=== PATIENT | female | born 1960 | race Two or more races ===

== ENCOUNTER 2020-07-06 20:23 | Inpatient (IN) | payer OTHER ==
[2020-07-06] MEDS ORDERED: ACETAMINOPHEN 325 MG TABLET PO STA (20:43)
[2020-07-06] MEDS ORDERED: SODIUM CHLORIDE 0.9% 1,000 ML IV STA (20:43)
[2020-07-06] MEDS ORDERED: ONDANSETRON 4 MG/2 ML VIAL IVP STA (20:44)
[2020-07-06 21:05] LABS: BASOPHILS % (AUTO) 0.2 %; HGB - HEMOGLOBIN 12.2 g/dL (12.0-16.0); LYMPHOCYTES # (AUTO) 0.9 10^3/uL (1.5-3.5); LYMPHOCYTES % (AUTO) 6.7 %; MEAN CORPUSCULAR HEMOGLOBIN 27.5 pg (27.0-31.0); MEAN CORPUSCULAR HGB CONC 34.1 g/dL (32.0-36.0); MEAN CORPUSCULAR VOLUME 80.6 fL (81.0-99.0); MEAN PLATELET VOLUME 9.6 fL (7.9-10.8); MONOCYTES # (AUTO) 0.4 10^3/uL (0.0-1.0); MONOCYTES % (AUTO) 3.4 %; NEUTROPHILS # (AUTO) 11.7 10^3/uL (1.5-6.6); NEUTROPHILS % (AUTO) 89.4 %; PLT - PLATELET COUNT 221 10^3/uL (130-450); RED BLOOD COUNT 4.44 10^6/uL (4.20-5.40); RED CELL DISTRIBUTION WIDTH 13.2 % (12.0-15.0); WHITE BLOOD COUNT 13.1 x10^3/uL (4.8-10.8)
[2020-07-06 21:17] LABS: ALBUMIN 4.3 g/dL (3.2-5.5); ALBUMIN/GLOBULIN RATIO 1.1 (1.0-2.2); CALCIUM 9.7 mg/dL (8.5-10.3); CREATININE 0.8 mg/dL (0.4-1.0); TOTAL PROTEIN 8.2 g/dL (6.7-8.2)
--- NOTE | 2020-07-06 21:19 | ED Physician Documentation ---
History of Present Illness - Stated complaint Stated Complaint: CHILLS,WEAK, TROUBLE URINATING - Chief complaint Chief Complaint: Fever - History obtained from History obtained from: Patient, Family - Additonal information Additional information: Patient comes emergency department chief complaint of dysuria for 1 week along with back pain, and fever and nausea x1 day. Patient has a history of diabetes and has had UTIs from time to time. She states that she feels as though she has urinary tract infection again. She denies any new shortness of breath. No chest pain or cough. No sore throat or other upper respiratory symptoms. Patient is mainly Tajik-speaking and daughter interprets. Patient also has a history of hypertension and hyperlipidemia, as well as anxiety. She takes Metformin for her diabetes. Her last measured blood sugar was 3 days ago, and was 150. No other complaints at this time. Review of Systems Ten Systems: 10 systems reviewed and negative Constitutional: reports: Fever Eyes: reports: Reviewed and negative Ears: reports: Reviewed and negative Nose: reports: Reviewed and negative Throat: reports: Reviewed and negative Cardiac: reports: Reviewed and negative Respiratory: reports: Reviewed and negative GI: reports: Abdominal Pain (suprapubic), Nausea, Vomiting (today only). denies: Diarrhea : reports: Dysuria, Frequency Skin: reports: Reviewed and negative Musculoskeletal: reports: Back pain, Reviewed and negative (R lower) Neurologic: reports: Reviewed and negative Psychiatric: reports: Reviewed and negative Endocrine: reports: Reviewed and negative Immunocompromised: reports: Reviewed and negative PD PAST MEDICAL HISTORY - Present Medications Home Medications: Ambulatory Orders Medication Instructions Recorded Confirmed Amlodipine Besylate [Norvasc] 10 mg PO DAILY 07/06/20 07/06/20 Duloxetine HCl [Cymbalta] 60 mg PO DAILY 07/06/20 07/06/20 Losartan Potassium [Cozaar] 100 mg PO DAILY 07/06/20 07/06/20 Metformin HCl [Glucophage] 1,000 mg PO BID 07/06/20 07/06/20 Pravastatin Sodium [Pravachol] 80 mg PO DAILY 07/06/20 07/06/20 busPIRone [Buspar] 5 mg PO DAILY 07/06/20 07/06/20 - Allergies Allergies/Adverse Reactions: Allergies Allergy/AdvReac Type Severity Reaction Status Date / Time No Known Drug Allergies Allergy Verified 07/06/20 20:32 PD ED PE NORMAL - Vitals Vital signs reviewed: Yes - General General: Alert and oriented X 3, No acute distress, Well developed/nourished - HEENT HEENT: Atraumatic, PERRL, EOMI, Moist mucous membranes - Neck Neck: Supple, no meningeal sign - Cardiac Cardiac: RRR, No murmur, Strong equal pulses - Respiratory Respiratory: No respiratory distress, Clear bilaterally - Abdomen Abdomen: Soft, Non tender, Non distended - Back Back: Other (R CVA tend) - Derm Derm: Normal color, Warm and dry, No rash - Extremities Extremities: No deformity, No edema, No calf tenderness / cord - Neuro Neuro: Alert and oriented X 3, Other (grossly intact) - Psych Psych: Normal mood, Normal affect Results - Vitals Vitals: Vital Signs - 24 hr 07/06/20 07/06/20 07/06/20 20:32 20:37 21:17 Temperature 39.2 C H 39.2 C H Heart Rate 100 98 96 Respiratory 16 18 16 Rate Blood Pressure 174/82 H 139/81 H 139/81 H O2 Saturation 98 98 100 07/06/20 07/06/20 07/06/20 21:48 22:18 22:30 Temperature 37.9 C 37.8 C 37.8 C Heart Rate 96 92 91 Respiratory 22 21 21 Rate Blood Pressure 119/89 H 134/62 H 135/62 H O2 Saturation 98 99 99 07/06/20 23:00 Temperature 37.7 C Heart Rate 95 Respiratory 21 Rate Blood Pressure 151/75 H O2 Saturation 97 Oxygen O2 Source Room air - Labs Labs: Microbiology 07/06/20 21:26 Blood Culture - Preliminary Blood - Left Arm Laboratory Tests 07/06/20 07/06/20 07/06/20 20:55 20:55 20:55 WBC 13.1 H RBC 4.44 Hgb 12.2 Hct 35.8 L MCV 80.6 L MCH 27.5 MCHC 34.1 RDW 13.2 Plt Count 221 MPV 9.6 Neut # (Auto) 11.7 H Lymph # (Auto) 0.9 L [place] # (Auto) 0.4 Eos # (Auto) 0.0 Baso # (Auto) 0.0 Absolute Nucleated RBC 0.00 Nucleated RBC % 0.0 Sodium 127 L Potassium 3.2 L Chloride 87 L Carbon Dioxide 23 Anion Gap 17.0 H BUN 9 Creatinine 0.8 Estimated GFR (MDRD) 73 L Glucose 268 H Lactic Acid 2.1 Calcium 9.7 Total Bilirubin 1.0 AST 25 ALT 25 Alkaline Phosphatase 70 Total Protein 8.2 Albumin 4.3 Globulin 3.9 Albumin/Globulin Ratio 1.1 Urine Color Urine Clarity Urine pH Ur Specific [place] Urine Protein Urine Glucose (UA) Urine Ketones Urine Occult Blood Urine Nitrite Urine Bilirubin Urine Urobilinogen Ur Leukocyte Esterase Urine RBC Urine WBC Ur Squamous Epith Cells Urine Bacteria Urine Culture Comments Nasal Adenovirus (PCR) Nasal B. parapertussis DNA (PCR) Nasal Coronavir 229E PCR Nasal Coronavir HKU1 PCR Nasal Coronavir NL63 PCR Nasal Coronavir OC43 PCR Nasal Enterovir/Rhinovir PCR Nasal Influenza B PCR Nasal Influenza A PCR Nasal Parainfluen 1 PCR Nasal Parainfluen 2 PCR Nasal Parainfluen 3 PCR Nasal Parainfluen 4 PCR Nasal RSV (PCR) Nasal B.pertussis DNA PCR Nasal C.pneumoniae (PCR) [place] Human Metapneumo PCR Nasal M.pneumoniae (PCR) Nasal SARS-CoV-2 (PCR) 07/06/20 07/06/20 21:36 22:23 WBC RBC Hgb Hct MCV MCH MCHC RDW Plt Count MPV Neut # (Auto) Lymph # (Auto) [place] # (Auto) Eos # (Auto) Baso # (Auto) Absolute Nucleated RBC Nucleated RBC % Sodium Potassium Chloride Carbon Dioxide Anion Gap BUN Creatinine Estimated GFR (MDRD) Glucose Lactic Acid Calcium Total Bilirubin AST ALT Alkaline Phosphatase Total Protein Albumin Globulin Albumin/Globulin Ratio Urine Color YELLOW Urine Clarity CLEAR Urine pH 7.5 Ur Specific [place] 1.015 Urine Protein 30 H Urine Glucose (UA) 100 H Urine Ketones NEGATIVE Urine Occult Blood NEGATIVE Urine Nitrite NEGATIVE Urine Bilirubin NEGATIVE Urine Urobilinogen 1 (NORMAL) Ur Leukocyte Esterase TRACE H Urine RBC 0-5 Urine WBC 6-10 H Ur Squamous Epith Cells FEW Squamous Urine Bacteria Rare Urine Culture Comments INDICATED Nasal Adenovirus (PCR) NOT DETECTED Nasal B. parapertussis DNA (PCR) NOT DETECTED Nasal Coronavir 229E PCR NOT DETECTED Nasal Coronavir HKU1 PCR NOT DETECTED Nasal Coronavir NL63 PCR NOT DETECTED Nasal Coronavir OC43 PCR NOT DETECTED Nasal Enterovir/Rhinovir PCR NOT DETECTED Nasal Influenza B PCR NOT DETECTED Nasal Influenza A PCR NOT DETECTED Nasal Parainfluen 1 PCR NOT DETECTED Nasal Parainfluen 2 PCR NOT DETECTED Nasal Parainfluen 3 PCR NOT DETECTED Nasal Parainfluen 4 PCR NOT DETECTED Nasal RSV (PCR) NOT DETECTED Nasal B.pertussis DNA PCR NOT DETECTED Nasal C.pneumoniae (PCR) NOT DETECTED [place] Human Metapneumo PCR NOT DETECTED Nasal M.pneumoniae (PCR) NOT DETECTED Nasal SARS-CoV-2 (PCR) NOT DETECTED - Rads (name of study) CT abd/pelvis Radiology: Prelim report reviewed, EMP read indepedently, See rad report (cystitis, otherwise NAD) PD MEDICAL DECISION MAKING - ED course Complexity details: reviewed old records, reviewed results, re-evaluated patient, considered differential, d/w patient ED course: The patient was treated with Tylenol for her fever and started on IV fluids. She was worked up with laboratory studies and urinalysis. The patient's white blood cell count was moderately elevated, and lactic acid level was high normal. Her urinalysis was mildly positive. Patient was significantly febrile, and I felt that she would benefit from observation in the hospital. I spoke with Dr. Blanco about this and at his request, a CT scan of the abdomen and pelvis was performed to evaluate for possible obstructive uropathy. This was found to be negative. At this point, the patient was accepted for admission. She had been given 2 g of Rocephin IV in the emergency department, and did not have deterioration of her vital signs during the course of her stay. Departure - Departure Disposition: [facility] DC/Xfer Clinical Impression: Fever, Diabetes UTI (urinary tract infection) Qualifiers: Urinary tract infection type: acute cystitis Hematuria presence: without hematuria Qualified Code(s): N30.00 - Acute cystitis without hematuria Condition: Serious Discharge Date/Time: 07/06/20 23:58
[2020-07-06 21:44] LABS: BILIRUBIN,URINE NEGATIVE (NEGATIVE); GLUCOSE, URINE (UA) 100 mg/dL (NEGATIVE); KETONES,URINE (UA) NEGATIVE (NEGATIVE); LEUKOCYTE ESTERASE, URINE TRACE (NEGATIVE); NITRITE,URINE NEGATIVE (NEGATIVE); OCCULT BLOOD,URINE NEGATIVE (NEGATIVE); PH,URINE 7.5 PH (5.0-7.5); PROTEIN,URINE 30 mg/dL (NEGATIVE); UROBILINOGEN,URINE 1 (NORMAL) E.U./dL (NORMAL)
[2020-07-06 21:48] LABS: CLARITY,URINE CLEAR (CLEAR)
[2020-07-06 21:53] LABS: RBC,URINE 0-5 /HPF (0-5); SQUAMOUS EPITHELIAL CELL,UR FEW Squamous (<= Few)
[2020-07-06 21:54] LABS: BACTERIA,URINE Rare /HPF (None Seen)
[2020-07-06] MEDS ORDERED: cefTRIAXone 2 GM in SODIUM CHLORIDE 0.9% MINIBAG 100 ML IV STA (22:05)
[2020-07-06] MEDS ORDERED: cefTRIAXone 2 GM VIAL ONE (22:24)
[2020-07-06] MEDS ORDERED: IOVERSOL 320 100 ML VIAL IVP ONE ×2 (22:32→22:53)
[2020-07-06] MEDS ORDERED: ONDANSETRON 4 MG/2 ML VIAL IVP PRN (23:18)
[2020-07-06] MEDS ORDERED: SODIUM CHLORIDE FLUSH 0.9% 10 ML SYRINGE IVP PRN (23:18)
[2020-07-06 23:23] LABS: C. PNEUMONIAE- RESP PCR PANEL NOT DETECTED
--- NOTE | 2020-07-06 23:25 | HISTORY & PHYSICAL EXAMINATION ---
Chief Complaint - Chief Complaint Chief Complaint: UTI symptoms History of Present Illness - Admitted From Admitted From:: Home - History Obtained From Records Reviewed: Yes History obtained from: Patient, Daughter ER Physician, EMR Exam Limitations: Patient is primarily Colombian-speaking and used her daughter as interpreter translator - History of Present Illness HPI Comment/Other: This is a 60-year-old Colombian-speaking female with a past medical history significant for type 2 diabetes mellitus, hypertension, anxiety, hyperlipidemia who presents today as she was concerned she had a urinary tract infection. She states her symptoms began about 1 week ago when she developed dysuria, urgency, and urgency. She also developed right flank pain. She came to the emergency department today at the request of her daughter given she started to develop chills, nausea, vomiting. There was also concern for a fever although her temperature was not measured as they do not have a thermometer at home. The patient does complain of nasal congestion as well but states this is chronic for the past 3 months and he attributes it to allergies. She reports no chest pain, dyspnea, cough. Denies any abdominal pain, diarrhea, constipation. She feels fatigued and very cold. She reports a prior history of urinary tract infections with the last one being about 3 years ago. She has never been hospitalized before for urinary tract infection. She previously saw a urologist in [place] but is no longer following up with one. She is currently visiting her daughter here in [facility] from [place], [place]. She has been here now for a few weeks and is planning on staying for most of the year. She will be flying back to [place] here and there for follow-up visits with her providers. In the emergency department, she is found to be febrile with temperature of 39.2 C. She is tachycardic with a heart rate in the 90s. Blood pressure was in the 130s systolics. She was not tachypneic and saturating well on room air. Labs were significant for a white count of 13,000 and a sodium of 127. Her potassium was also 3.2. Lactic acid was 2.1. Her urinalysis revealed pyuria and leukocyte esterase. She was given ceftriaxone and a liter of saline in the emergency department. She underwent a CT of the abdomen pelvis with contrast which did not reveal any nephrolithiasis or obstruction. Given the above findings, medicine was consulted for admission. I did discuss goals of care with the patient and she would like to be a DNR. History - Past Medical History Cardiovascular: reports: Hypertension, High cholesterol Respiratory: reports: Asthma Endocrine/Autoimmune: reports: Type 2 diabetes - Past Surgical History Ortho: reports: Other (She has had wrist and ankle interventions in the past.) - Family & Social History Family History Comment/Other: She denies any family history whatsoever. Social History Notes: She lives in [place], [place] but is visiting her daughter here in [facility]. She has been here for a few weeks and is planning on staying for most of the year. She is a non-smoker and does not drink alcohol. Meds/Allgy - Home Medications Home Medications: Ambulatory Orders Medication Instructions Recorded Confirmed Amlodipine Besylate [Norvasc] 10 mg PO DAILY 07/06/20 07/06/20 Duloxetine HCl [Cymbalta] 60 mg PO DAILY 07/06/20 07/06/20 Losartan Potassium [Cozaar] 100 mg PO DAILY 07/06/20 07/06/20 Metformin HCl [Glucophage] 1,000 mg PO BID 07/06/20 07/06/20 Pravastatin Sodium [Pravachol] 80 mg PO DAILY 07/06/20 07/06/20 busPIRone [Buspar] 5 mg PO DAILY 07/06/20 07/06/20 - Allergies Allergies/Adverse Reactions: Allergies Allergy/AdvReac Type Severity Reaction Status Date / Time No Known Drug Allergies Allergy Verified 07/06/20 20:32 Review of Systems - Constitutional Constitutional: reports: Fatigue, Fever, Chills, Malaise - Ears, Nose & Throat Ears, Nose & Throat: reports: Nasal congestion. denies: Nasal discharge, Sore throat - Cardiovascular Cariovascular: reports: Lightheadedness. denies: Chest pain, Exertional dyspnea, Decr. exercise tolerance - Respiratory Respiratory: denies: Cough, SOB at rest, SOB with exertion - Gastrointestinal Gastrointestinal: reports: Nausea, Vomiting. denies: Abdominal pain, Constipation, Diarrhea - Genitourinary Genitourinary: reports: Dysuria, Frequency, Urgency. denies: Hematuria - Musculoskeletal Musculoskeletal: reports: Back pain, Muscle aches - Neurological Neurological: reports: Headache, Dizziness. denies: General weakness, Focal weakness, Numbness - Psychiatric Psychiatric: reports: Anxiety - Hematologic/Lymphatic Hematologic/Lymphatic: denies: Bleeding tendencies - All Other Systems All Other Systems: reports: Reviewed and negative Prior Level of Functionality: She is independent with her ADL's. Exam - Vital Signs Reviewed Vital Signs: Yes Vital Signs: Vital Signs x48h Temp Pulse Resp BP Pulse Ox 07/06/20 23:00 37.7 C 95 21 151/75 H 97 07/06/20 22:30 37.8 C 91 21 135/62 H 99 07/06/20 22:18 37.8 C 92 21 134/62 H 99 07/06/20 21:48 37.9 C 96 22 119/89 H 98 07/06/20 21:17 96 16 139/81 H 100 07/06/20 20:37 39.2 C H 98 18 139/81 H 98 07/06/20 20:32 39.2 C H 100 16 174/82 H 98 - Physical Exam General Appearance: positive: Alert, Mild distress, Other (She is shivering throughout the examination.) Eyes Bilateral: positive: Normal inspection, Conjunctivae nml ENT: positive: ENT inspection nml, Dry mucous membranes. negative: No signs of dehydration Neck: positive: Nml inspection Respiratory: positive: No respiratory distress. negative: Wheezes, Rales Cardiovascular: positive: No murmur, Tachycardia. negative: Irregularly irregular, Systolic murmur Abdomen: positive: Non-tender, No distention. negative: Tenderness, Guarding, Rebound Skin: positive: Warm, Dry Extremities: positive: Full ROM, No pedal edema Neurologic/Psychiatric: positive: Motor nml. negative: Disoriented to person, Disoriented to place Sepsis Event Note (H) - Evaluation Current Stage of Sepsis: Sepsis Possible source of Sepsis: positive: Genitourinary - Sepsis Criteria Sepsis Criteria: Recorded Temperature greater than 38.3C or Less than 36C, Recorded Heart Rate greater than 90 bpm, WBC count greater than 12,000 or less than 4000, Metabolic: lactate > 2 mmol/L Conclusion/Plan - Problem List (1) Sepsis Conclusion/Plan: This appears to be secondary to a urinary tract infection. She presents with fever, leukocytosis, tachycardia. Her urinalysis does reveal pyuria and leukocyte esterase. She also has symptoms consistent with a urinary tract infection. CT of the abdomen and pelvis did not reveal any obstruction. Concern is for bacteremia given her fever and chills. She received ceftriaxone IV in the emergency department as well as 1 L of normal saline. We will keep her on ceftriaxone IV. Continue with IV fluids. Daily CBC. Tylenol as needed for fevers. Follow-up urine culture and blood cultures. (2) Urinary tract infection Conclusion/Plan: Her urinalysis does suggest infection and she does have symptoms of a urinary tract infection. She has a prior history of urinary tract infections although we do not have cultures available. CT the abdomen pelvis not reveal any obstruction or concern for pyelonephritis. It did suggest cystitis. We will keep on ceftriaxone IV and follow-up urine culture. Qualifiers: Urinary tract infection type: acute cystitis Hematuria presence: without hematuria Qualified Code(s): N30.00 - Acute cystitis without hematuria (3) Hyponatremia Conclusion/Plan: This is likely hypovolemic hyponatremia. Her sodium is 127. This should improve with IV fluids and so we will place her on saline at 100 mL an hour. Recheck BMP in the morning. (4) Hypokalemia Conclusion/Plan: We will replace this orally. (5) Type 2 diabetes mellitus Conclusion/Plan: She is hyperglycemic with a blood glucose of 268. We will place her on a carb controlled diet. Place her on Lantus 5 units in the evening and sliding scale. Check A1c. Hold Metformin. (6) Hypertension Conclusion/Plan: We will hold her home antihypertensive for the time being given she is normotensive and the concern for sepsis. We will resume when appropriate. (7) Anxiety Conclusion/Plan: We will continue her home medications. - Lab Results Lab results reviewed: Yes Fish Bones: 07/06/20 20:55 07/06/20 20:55 - Diagnostic Imaging Results Diagnostic Imaging Results: positive: Prelim report reviewed Core Measures - Anticipated LOS I expect patient to be DC'd or transferred within 96 hours.: Yes - Issues Hospital Issues and Management Plan: 60-year-old female presents with dysuria, urgency and fever found to have a urinary tract infection with concern for sepsis. We will admit her for IV antibiotics. - DVT/VTE - Prophylaxis VTE/DVT Device ordered at admit?: Yes VTE/DVT Prophylaxis med ordered at admit?: Yes
[2020-07-06] MEDS ORDERED: POTASSIUM CHLORIDE 20 MEQ TABLET PO STA (23:30)
[2020-07-06] MEDS ORDERED: LACTATED RINGERS 1,000 ML IV SCH (23:45)
[2020-07-07] MEDS: SODIUM CHLORIDE 0.9% 1,000 ML IV SCH ×3 (00:41→18:01)
[2020-07-07] MEDS ORDERED: IBUPROFEN 400 MG TABLET PO PRN (00:51)
[2020-07-07] MEDS: SODIUM CHLORIDE FLUSH 0.9% 10 ML SYRINGE IVP SCH ×3 (02:46→17:12)
[2020-07-07 05:05] LABS: BASOPHILS # (AUTO) 0.1 10^3/uL (0.0-0.1); BASOPHILS % (AUTO) 0.3 %; HGB - HEMOGLOBIN 11.1 g/dL (12.0-16.0); MEAN CORPUSCULAR HEMOGLOBIN 27.7 pg (27.0-31.0); MEAN CORPUSCULAR VOLUME 81.3 fL (81.0-99.0); MEAN PLATELET VOLUME 10.3 fL (7.9-10.8); MONOCYTES # (AUTO) 0.9 10^3/uL (0.0-1.0); MONOCYTES % (AUTO) 6.1 %; NEUTROPHILS # (AUTO) 12.4 10^3/uL (1.5-6.6); NEUTROPHILS % (AUTO) 86.2 %; PLT - PLATELET COUNT 192 10^3/uL (130-450); RED BLOOD COUNT 4.01 10^6/uL (4.20-5.40); RED CELL DISTRIBUTION WIDTH 13.4 % (12.0-15.0); WHITE BLOOD COUNT 14.4 x10^3/uL (4.8-10.8)
[2020-07-07 05:20] LABS: CALCIUM 8.6 mg/dL (8.5-10.3); CREATININE 0.8 mg/dL (0.4-1.0); MAGNESIUM 1.4 mg/dL (1.7-2.8)
[2020-07-07] MEDS ORDERED: POTASSIUM CHLORIDE 20 MEQ TABLET PO ONE (07:01)
[2020-07-07] MEDS ORDERED: MAGNESIUM SULFATE 2 GRAM 2 GM/50 ML BAG IV ONE (08:00)
[2020-07-07] MEDS: INSULIN ASPART 300 UNIT/3 ML PEN SUBQ SCH ×4 (08:02→20:31)
--- NOTE | 2020-07-07 08:24 | CT Report ---
PROCEDURE: Abdomen/Pelvis W INDICATIONS: abdominal pain CONTRAST: IV CONTRAST: Optiray 320 ml: 100 PO CONTRAST: *NO PO CONTRAST TECHNIQUE: After the administration of intravenous contrast, 5 mm thick sections acquired from the diaphragms to the symphysis. 5 mm thick coronal and sagittal reformats were acquired. For radiation dose reducti on, the following was used: automated exposure control, adjustment of mA and/or kV according to patito ent size. COMPARISON: None. FINDINGS: Image quality: Excellent. ABDOMEN: Lung bases: There is mild dependent atelectasis bilaterally. Heart size is normal. Solid organs: Evaluation of the liver demonstrates no focal hepatic lesions. Gallbladder appears wit hin normal limits without calcified gallstones. Biliary system is non dilated. The spleen is normal in size. Pancreas enhances normally without peripancreatic fat stranding or fluid collections. No ad renal nodules. Kidneys demonstrate no hydronephrosis. There is mild left urothelial thickening with mild perinephric stranding. No perinephric fluid collections. Peritoneum and bowel: Bowel loops demonstrate normal wall thickness and caliber. The appendix is nor mal in appearance. There is colonic diverticulosis without acute diverticulitis. No free fluid or air . Nodes and vessels: No retroperitoneal or mesenteric adenopathy by size criteria. Aorta and inferior vena cava are normal in size. Miscellaneous: No ventral hernias. PELVIS: Genitourinary: There is mild bladder wall thickening. Miscellaneous: No inguinal hernias or adenopathy. Bones: No suspicious bony lesions. No vertebral body compression fractures. There are bilateral par s defects with mild grade 1 anterolisthesis at L5-S1. IMPRESSION: 1. Mild bladder wall thickening suggestive of cystitis. 2. Mild left perinephric stranding with mild urothelial thickening suggestive of a urinary tract infe ction and possible pyelonephritis. No perinephric fluid collections or hydronephrosis. Reviewed by: Clifford Keith MD on 07/07/2020 8:23 AM PST Approved by: Clifford Keith MD on 07/07/2020 8:23 AM PST Station ID: [id number]
--- NOTE | 2020-07-07 09:00 | XRAY Report ---
PROCEDURE: Chest 1 View X-Ray INDICATIONS: Fever. TECHNIQUE: One view of the chest was acquired. COMPARISON: 6 FINDINGS: Surgical changes and devices: None. Lungs and pleura: No pleural effusions or pneumothorax. Lungs are clear. Mediastinum: Mediastinal contours appear normal. Heart size is normal. Bones and chest wall: No suspicious bony lesions. Overlying soft tissues appear unremarkable. IMPRESSION: No acute disease. Reviewed by: Addison Blackman MD on 07/07/2020 8:59 AM [facility] Approved by: Addison Blackman MD on 07/07/2020 8:59 AM [facility] Station ID: [id number]
[2020-07-07] MEDS: POTASSIUM CHLOR 10 MEQ/100 ML 10 MEQ/100 ML BAG IV SCH ×4 (09:03→12:10)
[2020-07-07] MEDS: PRAVASTATIN 40 MG TABLET PO SCH (09:06)
[2020-07-07] MEDS: ACETAMINOPHEN 325 MG TABLET PO PRN ×2 (09:06→19:53)
[2020-07-07] MEDS: busPIRone 5 MG TABLET PO SCH (09:07)
[2020-07-07] MEDS: ENOXAPARIN 40 MG/0.4 ML SYRINGE SUBQ SCH (09:07)
[2020-07-07] MEDS: DULoxetine 30 MG CAPSULE PO SCH (09:07)
--- NOTE | 2020-07-07 09:39 | PROVIDER PROGRESS NOTE ---
Subjective - Prog Note Date Prog Note Date: 07/07/20 Prog Note Time: 09:27 - Subjective Pt reports feeling: Improved Subjective: I am bilingual. Patient prefers to speak Citizen Of [place]. She states that she feels much better than yesterday. The only complaint she has this morning is nausea. No emesis, no diarrhea. She denies chest pain, cough, and her myalgias have completely disappeared. She has not had rigors since last night's admission. Current Medications - Current Medications Current Medications: Active Medications Acetaminophen (Acetaminophen 325 Mg Tablet) 650 mg PO Q4HR PRN PRN Reason: Pain 1 to 4 Last Admin: 07/07/20 09:06 Dose: 650 mg Documented by: Buspirone HCl (Buspirone 5 Mg Tablet) 5 mg PO DAILY [facility] Last Admin: 07/07/20 09:07 Dose: 5 mg Documented by: Duloxetine HCl (Duloxetine 30 Mg Capsule) 60 mg PO DAILY [facility] Last Admin: 07/07/20 09:07 Dose: 60 mg Documented by: Enoxaparin Sodium (Enoxaparin 40 Mg/0.4 Ml Syringe) 40 mg SUBQ DAILY [facility] Last Admin: 07/07/20 09:07 Dose: 40 mg Documented by: Sodium Chloride (Normal Saline 0.9%) 1,000 mls @ 125 mls/hr IV .Q8H [facility] Last Admin: 07/07/20 08:01 Dose: 125 mls/hr Documented by: Magnesium Sulfate (Magnesium Sulfate) 2 gm in 50 mls @ 25 mls/hr IV ONCE ONE Stop: 07/07/20 09:59 Last Admin: 07/07/20 08:01 Dose: 25 mls/hr Documented by: Potassium Chloride (Potassium Chloride) 10 meq in 100 mls @ 100 mls/hr IV Q1H [facility] Stop: 07/07/20 11:59 Last Admin: 07/07/20 09:03 Dose: 100 mls/hr Documented by: Ceftriaxone Sodium 1 gm/ (Sodium Chloride) 100 mls @ 200 mls/hr IV DAILY [facility] Ibuprofen (Ibuprofen 400 Mg Tablet) 400 mg PO Q6HR PRN PRN Reason: PAIN Insulin Aspart (Insulin Aspart 300 Unit/3 Ml Pen) 1 - 5 unit SUBQ 0800,1200,17 00,2100 [facility]; Protocol Last Admin: 07/07/20 08:02 Dose: 2 unit Documented by: Insulin Glargine (Insulin Glargine 300 Unit/3 Ml Pen) 5 unit SUBQ QPM [facility] Ondansetron HCl (Ondansetron 4 Mg/2 Ml Vial) 4 mg IVP Q6HR PRN PRN Reason: Nausea / Vomiting Pravastatin Sodium (Pravastatin 40 Mg Tablet) 80 mg PO DAILY [facility] Last Admin: 07/07/20 09:06 Dose: 80 mg Documented by: Sodium Chloride (Sodium Chloride Flush 0.9% 10 Ml Syringe) 10 ml IVP PRN PRN PRN Reason: NEEDED PER PROVIDER ORDERS Sodium Chloride (Sodium Chloride Flush 0.9% 10 Ml Syringe) 10 ml IVP 0100,0900,1700 [facility] Last Admin: 07/07/20 08:54 Dose: Not Given Documented by: Amlodipine Besylate [Norvasc] 10 mg PO DAILY 07/06/20 Duloxetine HCl [Cymbalta] 60 mg PO DAILY 07/06/20 Losartan Potassium [Cozaar] 100 mg PO DAILY 07/06/20 Metformin HCl [Glucophage] 1,000 mg PO BID 07/06/20 Pravastatin Sodium [Pravachol] 80 mg PO DAILY 07/06/20 busPIRone [Buspar] 5 mg PO DAILY 07/06/20 Objective - Vital Signs/Intake & Output Reviewed Vital Signs: Yes Vital Signs: Vital Signs x48h Temp Pulse Resp BP Pulse Ox 07/07/20 07:56 37.3 C 86 15 120/63 97 07/07/20 04:28 37.2 C 86 14 114/50 L 94 Intake & Output: Intake & Output 07/04/20 07/05/20 07/06/20 07/07/20 23:59 23:59 23:59 23:59 Intake Total 1100 1036.667 Balance 1100 1036.667 - Objective General Appearance: positive: No acute distress, Alert, Other (Mildly overweight female, pleasant, alert, oriented, normal speech patterns, lucid) Eyes Bilateral: positive: PERRL, EOMI ENT: positive: No signs of dehydration Neck: positive: No JVD. negative: Stiff neck Respiratory: positive: No respiratory distress. negative: Wheezes, Rales, Rhonchi Cardiovascular: positive: Regular rate & rhythm, No murmur. negative: Gallop/S4, Friction rub Abdomen: positive: Non-tender, No organomegaly, Nml bowel sounds, No distention Skin: positive: Warm, Dry Extremities: positive: Full ROM, No pedal edema Neurologic/Psychiatric: positive: Oriented x3, CN's nml (2-12), Motor nml - Lab Results Fish Bones: 07/07/20 04:18 07/07/20 04:18 Other Labs: Lab Results x24hrs 07/07/20 07/07/20 07/07/20 Range/Units 07:49 05:11 04:18 WBC (4.8-10.8) x10^3/uL RBC (4.20-5.40) 10^6/uL Hgb (12.0-16.0) g/dL Hct (37.0-47.0) % MCV (81.0-99.0) fL MCH (27.0-31.0) pg MCHC (32.0-36.0) g/dL RDW (12.0-15.0) % Plt Count (130-450) 10^3/uL MPV (7.9-10.8) fL Neut # (Auto) (1.5-6.6) 10^3/uL Lymph # (Auto) (1.5-3.5) 10^3/uL [place] # (Auto) (0.0-1.0) 10^3/uL Eos # (Auto) (0.0-0.7) 10^3/uL Baso # (Auto) (0.0-0.1) 10^3/uL Absolute Nucleated RBC x10^3/uL Nucleated RBC % /100WBC Sodium 127 L (135-145) mmol/L Potassium 2.7 L (3.5-5.0) mmol/L Chloride 91 L (101-111) mmol/L Carbon Dioxide 22 (21-32) mmol/L Anion Gap 14.0 H (6-13) BUN 9 (6-20) mg/dL Creatinine 0.8 (0.4-1.0) mg/dL Estimated GFR (MDRD) 73 L (>89) Glucose 237 H (70-100) mg/dL POC Whole Bld Glucose 192 H (70 - 100) mg/dL Lactic Acid 1.1 (0.5-2.2) mmol/L Calcium 8.6 (8.5-10.3) mg/dL Magnesium 1.4 L (1.7-2.8) mg/dL Total Bilirubin (0.2-1.0) mg/dL AST (10-42) IU/L ALT (10-60) IU/L Alkaline Phosphatase (42-121) IU/L Total Protein (6.7-8.2) g/dL Albumin (3.2-5.5) g/dL Globulin (2.1-4.2) g/dL Albumin/Globulin Ratio (1.0-2.2) Urine Color Urine Clarity (CLEAR) Urine pH (5.0-7.5) PH Ur Specific [place] (1.002-1.030) Urine Protein (NEGATIVE) mg/dL Urine Glucose (UA) (NEGATIVE) mg/dL Urine Ketones (NEGATIVE) mg/dL Urine Occult Blood (NEGATIVE) Urine Nitrite (NEGATIVE) Urine Bilirubin (NEGATIVE) Urine Urobilinogen (NORMAL) E.U./dL Ur Leukocyte Esterase (NEGATIVE) Urine RBC (0-5) /HPF Urine WBC (0-5) /HPF Ur Squamous Epith Cells (<= Few) Urine Bacteria (None Seen) /HPF Urine Culture Comments Nasal Adenovirus (PCR) Nasal B. parapertussis DNA (PCR) Nasal Coronavir 229E PCR Nasal Coronavir HKU1 PCR Nasal Coronavir NL63 PCR Nasal Coronavir OC43 PCR Nasal Enterovir/Rhinovir PCR Nasal Influenza B PCR Nasal Influenza A PCR Nasal Parainfluen 1 PCR Nasal Parainfluen 2 PCR Nasal Parainfluen 3 PCR Nasal Parainfluen 4 PCR Nasal RSV (PCR) Nasal B.pertussis DNA PCR Nasal C.pneumoniae (PCR) [place] Human Metapneumo PCR Nasal M.pneumoniae (PCR) Nasal SARS-CoV-2 (PCR) 07/07/20 07/07/20 07/06/20 Range/Units 04:18 00:48 22:23 WBC 14.4 H (4.8-10.8) x10^3/uL RBC 4.01 L (4.20-5.40) 10^6/uL Hgb 11.1 L (12.0-16.0) g/dL Hct 32.6 L (37.0-47.0) % MCV 81.3 (81.0-99.0) fL MCH 27.7 (27.0-31.0) pg MCHC 34.0 (32.0-36.0) g/dL RDW 13.4 (12.0-15.0) % Plt Count 192 (130-450) 10^3/uL MPV 10.3 (7.9-10.8) fL Neut # (Auto) 12.4 H (1.5-6.6) 10^3/uL Lymph # (Auto) 1.0 L (1.5-3.5) 10^3/uL [place] # (Auto) 0.9 (0.0-1.0) 10^3/uL Eos # (Auto) 0.0 (0.0-0.7) 10^3/uL Baso # (Auto) 0.1 (0.0-0.1) 10^3/uL Absolute Nucleated RBC 0.00 x10^3/uL Nucleated RBC % 0.0 /100WBC Sodium (135-145) mmol/L Potassium (3.5-5.0) mmol/L Chloride (101-111) mmol/L Carbon Dioxide (21-32) mmol/L Anion Gap (6-13) BUN (6-20) mg/dL Creatinine (0.4-1.0) mg/dL Estimated GFR (MDRD) (>89) Glucose (70-100) mg/dL POC Whole Bld Glucose (70 - 100) mg/dL Lactic Acid 2.1 (0.5-2.2) mmol/L Calcium (8.5-10.3) mg/dL Magnesium (1.7-2.8) mg/dL Total Bilirubin (0.2-1.0) mg/dL AST (10-42) IU/L ALT (10-60) IU/L Alkaline Phosphatase (42-121) IU/L Total Protein (6.7-8.2) g/dL Albumin (3.2-5.5) g/dL Globulin (2.1-4.2) g/dL Albumin/Globulin Ratio (1.0-2.2) Urine Color Urine Clarity (CLEAR) Urine pH (5.0-7.5) PH Ur Specific [place] (1.002-1.030) Urine Protein (NEGATIVE) mg/dL Urine Glucose (UA) (NEGATIVE) mg/dL Urine Ketones (NEGATIVE) mg/dL Urine Occult Blood (NEGATIVE) Urine Nitrite (NEGATIVE) Urine Bilirubin (NEGATIVE) Urine Urobilinogen (NORMAL) E.U./dL Ur Leukocyte Esterase (NEGATIVE) Urine RBC (0-5) /HPF Urine WBC (0-5) /HPF Ur Squamous Epith Cells (<= Few) Urine Bacteria (None Seen) /HPF Urine Culture Comments Nasal Adenovirus (PCR) NOT DETECTED Nasal B. parapertussis DNA (PCR) NOT DETECTED Nasal Coronavir 229E PCR NOT DETECTED Nasal Coronavir HKU1 PCR NOT DETECTED Nasal Coronavir NL63 PCR NOT DETECTED Nasal Coronavir OC43 PCR NOT DETECTED Nasal Enterovir/Rhinovir PCR NOT DETECTED Nasal Influenza B PCR NOT DETECTED Nasal Influenza A PCR NOT DETECTED Nasal Parainfluen 1 PCR NOT DETECTED Nasal Parainfluen 2 PCR NOT DETECTED Nasal Parainfluen 3 PCR NOT DETECTED Nasal Parainfluen 4 PCR NOT DETECTED Nasal RSV (PCR) NOT DETECTED Nasal B.pertussis DNA PCR NOT DETECTED Nasal C.pneumoniae (PCR) NOT DETECTED [place] Human Metapneumo PCR NOT DETECTED Nasal M.pneumoniae (PCR) NOT DETECTED Nasal SARS-CoV-2 (PCR) NOT DETECTED 07/06/20 07/06/20 07/06/20 Range/Units 21:36 20:55 20:55 WBC (4.8-10.8) x10^3/uL RBC (4.20-5.40) 10^6/uL Hgb (12.0-16.0) g/dL Hct (37.0-47.0) % MCV (81.0-99.0) fL MCH (27.0-31.0) pg MCHC (32.0-36.0) g/dL RDW (12.0-15.0) % Plt Count (130-450) 10^3/uL MPV (7.9-10.8) fL Neut # (Auto) (1.5-6.6) 10^3/uL Lymph # (Auto) (1.5-3.5) 10^3/uL [place] # (Auto) (0.0-1.0) 10^3/uL Eos # (Auto) (0.0-0.7) 10^3/uL Baso # (Auto) (0.0-0.1) 10^3/uL Absolute Nucleated RBC x10^3/uL Nucleated RBC % /100WBC Sodium 127 L (135-145) mmol/L Potassium 3.2 L (3.5-5.0) mmol/L Chloride 87 L (101-111) mmol/L Carbon Dioxide 23 (21-32) mmol/L Anion Gap 17.0 H (6-13) BUN 9 (6-20) mg/dL Creatinine 0.8 (0.4-1.0) mg/dL Estimated GFR (MDRD) 73 L (>89) Glucose 268 H (70-100) mg/dL POC Whole Bld Glucose (70 - 100) mg/dL Lactic Acid 2.1 (0.5-2.2) mmol/L Calcium 9.7 (8.5-10.3) mg/dL Magnesium (1.7-2.8) mg/dL Total Bilirubin 1.0 (0.2-1.0) mg/dL AST 25 (10-42) IU/L ALT 25 (10-60) IU/L Alkaline Phosphatase 70 (42-121) IU/L Total Protein 8.2 (6.7-8.2) g/dL Albumin 4.3 (3.2-5.5) g/dL Globulin 3.9 (2.1-4.2) g/dL Albumin/Globulin Ratio 1.1 (1.0-2.2) Urine Color YELLOW Urine Clarity CLEAR (CLEAR) Urine pH 7.5 (5.0-7.5) PH Ur Specific [place] 1.015 (1.002-1.030) Urine Protein 30 H (NEGATIVE) mg/dL Urine Glucose (UA) 100 H (NEGATIVE) mg/dL Urine Ketones NEGATIVE (NEGATIVE) mg/dL Urine Occult Blood NEGATIVE (NEGATIVE) Urine Nitrite NEGATIVE (NEGATIVE) Urine Bilirubin NEGATIVE (NEGATIVE) Urine Urobilinogen 1 (NORMAL) (NORMAL) E.U./dL Ur Leukocyte Esterase TRACE H (NEGATIVE) Urine RBC 0-5 (0-5) /HPF Urine WBC 6-10 H (0-5) /HPF Ur Squamous Epith Cells FEW Squamous (<= Few) Urine Bacteria Rare (None Seen) /HPF Urine Culture Comments INDICATED Nasal Adenovirus (PCR) Nasal B. parapertussis DNA (PCR) Nasal Coronavir 229E PCR Nasal Coronavir HKU1 PCR Nasal Coronavir NL63 PCR Nasal Coronavir OC43 PCR Nasal Enterovir/Rhinovir PCR Nasal Influenza B PCR Nasal Influenza A PCR Nasal Parainfluen 1 PCR Nasal Parainfluen 2 PCR Nasal Parainfluen 3 PCR Nasal Parainfluen 4 PCR Nasal RSV (PCR) Nasal B.pertussis DNA PCR Nasal C.pneumoniae (PCR) [place] Human Metapneumo PCR Nasal M.pneumoniae (PCR) Nasal SARS-CoV-2 (PCR) 07/06/20 Range/Units 20:55 WBC 13.1 H (4.8-10.8) x10^3/uL RBC 4.44 (4.20-5.40) 10^6/uL Hgb 12.2 (12.0-16.0) g/dL Hct 35.8 L (37.0-47.0) % MCV 80.6 L (81.0-99.0) fL MCH 27.5 (27.0-31.0) pg MCHC 34.1 (32.0-36.0) g/dL RDW 13.2 (12.0-15.0) % Plt Count 221 (130-450) 10^3/uL MPV 9.6 (7.9-10.8) fL Neut # (Auto) 11.7 H (1.5-6.6) 10^3/uL Lymph # (Auto) 0.9 L (1.5-3.5) 10^3/uL [place] # (Auto) 0.4 (0.0-1.0) 10^3/uL Eos # (Auto) 0.0 (0.0-0.7) 10^3/uL Baso # (Auto) 0.0 (0.0-0.1) 10^3/uL Absolute Nucleated RBC 0.00 x10^3/uL Nucleated RBC % 0.0 /100WBC Sodium (135-145) mmol/L Potassium (3.5-5.0) mmol/L Chloride (101-111) mmol/L Carbon Dioxide (21-32) mmol/L Anion Gap (6-13) BUN (6-20) mg/dL Creatinine (0.4-1.0) mg/dL Estimated GFR (MDRD) (>89) Glucose (70-100) mg/dL POC Whole Bld Glucose (70 - 100) mg/dL Lactic Acid (0.5-2.2) mmol/L Calcium (8.5-10.3) mg/dL Magnesium (1.7-2.8) mg/dL Total Bilirubin (0.2-1.0) mg/dL AST (10-42) IU/L ALT (10-60) IU/L Alkaline Phosphatase (42-121) IU/L Total Protein (6.7-8.2) g/dL Albumin (3.2-5.5) g/dL Globulin (2.1-4.2) g/dL Albumin/Globulin Ratio (1.0-2.2) Urine Color Urine Clarity (CLEAR) Urine pH (5.0-7.5) PH Ur Specific [place] (1.002-1.030) Urine Protein (NEGATIVE) mg/dL Urine Glucose (UA) (NEGATIVE) mg/dL Urine Ketones (NEGATIVE) mg/dL Urine Occult Blood (NEGATIVE) Urine Nitrite (NEGATIVE) Urine Bilirubin (NEGATIVE) Urine Urobilinogen (NORMAL) E.U./dL Ur Leukocyte Esterase (NEGATIVE) Urine RBC (0-5) /HPF Urine WBC (0-5) /HPF Ur Squamous Epith Cells (<= Few) Urine Bacteria (None Seen) /HPF Urine Culture Comments Nasal Adenovirus (PCR) Nasal B. parapertussis DNA (PCR) Nasal Coronavir 229E PCR Nasal Coronavir HKU1 PCR Nasal Coronavir NL63 PCR Nasal Coronavir OC43 PCR Nasal Enterovir/Rhinovir PCR Nasal Influenza B PCR Nasal Influenza A PCR Nasal Parainfluen 1 PCR Nasal Parainfluen 2 PCR Nasal Parainfluen 3 PCR Nasal Parainfluen 4 PCR Nasal RSV (PCR) Nasal B.pertussis DNA PCR Nasal C.pneumoniae (PCR) [place] Human Metapneumo PCR Nasal M.pneumoniae (PCR) Nasal SARS-CoV-2 (PCR) ABX Reporting Has patient been on IV antibiotics over the past 48 hours?: Yes Sepsis Event Note (H) - Evaluation Current Stage of Sepsis: Resolved Possible source of Sepsis: positive: Genitourinary Confirmed Source and Organism (if known) of Sepsis: Ecoli UTI - Sepsis Criteria Sepsis Criteria: Recorded Temperature greater than 38.3C or Less than 36C, Recorded Heart Rate greater than 90 bpm, WBC count greater than 12,000 or less than 4000, Metabolic: lactate > 2 mmol/L Assessment/Plan - Problem List (1) Sepsis Impression: This appears to be secondary to a urinary tract infection. She presents with fever, leukocytosis, tachycardia. Her urinalysis does reveal pyuria and leukocyte esterase. She also has symptoms consistent with a urinary tract infection. CT of the abdomen and pelvis did not reveal any obstruction. White cell count started at 13.1. She is 14.4 today. Blood and urine cultures are growing out E. coli. Her last tachycardia was at midnight last night at 107. Since then she has been at 86 heart rate. T-max was in the emergency room at 39.2 on admission. Since then she has dropped her temperature and this morning she is 37.3. She was hypertensive on admission at 174/82. This morning she is 120/60. Overall she feels much better except for the nausea. I will start her on oral antibiotics tonight, see how she does. Possibility she may be discharged tomorrow morning or the morning of the depending on how she does on oral antibiotics. (2) Urinary tract infection Conclusion/Plan: Her urinalysis did suggest infection and she does have symptoms of a urinary tract infection. She has a prior history of urinary tract infections although we do not have cultures available. CT the abdomen pelvis not reveal any obs truction or concern for pyelonephritis. It did suggest cystitis. Ceftriaxone day #2/7 of antibiotics. Cultures growing out E. coli. Will await sensitivities to make sure she is on the right drug Qualifiers: Urinary tract infection type: acute cystitis Hematuria presence: without hematuria Qualified Code(s): N30.00 - Acute cystitis without hematuria (3) Hyponatremia Conclusion/Plan: This is likely hypovolemic hyponatremia. Her sodium was 127 on admit and remains at 127. This should improve with IV fluids and so we will place her on saline at 100 mL an hour. Recheck BMP daily (4) Hypokalemia continues Conclusion/Plan: We will replace this orally this morning as well as IV riders since she went from 3.2 to 2.7 (5) Type 2 diabetes mellitus Conclusion/Plan: On admission she was hyperglycemic with a blood glucose of 268. We placed her on a carb controlled diet. Placed her on Lantus 5 units in the evening and sliding scale. A1c drawn and pending. Metformin being held. 192 this morning. No change in orders for now. (6) Hypertension Conclusion/Plan: We will hold her home antihypertensive for the time being given she is normotensive and the concern for sepsis. We will resume when appropriate. (7) Anxiety Conclusion/Plan: We will continue her home medications.
[2020-07-07 13:14] LABS: HEMOGLOBIN A1c% 7.4 % (4.27-6.07)
[2020-07-07] MEDS ORDERED: cefTRIAXone 1 GM in SODIUM CHLORIDE 0.9% MINIBAG 100 ML IV SCH ×2 (14:00→21:00)
[2020-07-07] MEDS: PHENAZOPYRIDINE 100 MG TABLET PO SCH (14:30)
--- NOTE | 2020-07-07 18:40 | PHARMACY PROGRESS NOTE ---
- Best Possible Medication History Admit Date and Time: 07/06/20 4750 Processed by: Nursing Medication History completed: Yes As the person ultimately responsible for medication therapy, providers are able to order a medication from an existing home medication list in [facility] via the "Reconcile Routine" prior to Confirmation of that medication by call center support representative. Such practice is discouraged except when the physician, in their clinical judgment, deems that a medical need exists for a medication without regard to previous use.
[2020-07-07] MEDS: polyethylene glycoL 3350 17 GM PACKET PO SCH (20:30)
[2020-07-07] MEDS: CIPROFLOXACIN 250 MG TABLET PO SCH (20:30)
[2020-07-07] MEDS: INSULIN GLARGINE 300 UNIT/3 ML PEN SUBQ SCH (20:32)
[2020-07-08] MEDS: SODIUM CHLORIDE FLUSH 0.9% 10 ML SYRINGE IVP SCH ×3 (01:07→17:04)
[2020-07-08] MEDS: SODIUM CHLORIDE 0.9% 1,000 ML IV SCH ×3 (02:03→17:06)
[2020-07-08] MEDS: ACETAMINOPHEN 325 MG TABLET PO PRN ×2 (03:17→09:22)
[2020-07-08 04:45] LABS: BASOPHILS % (AUTO) 0.3 %; EOSINOPHILS % (AUTO) 0.1 %; HGB - HEMOGLOBIN 10.2 g/dL (12.0-16.0); LYMPHOCYTES % (AUTO) 14.3 %; MEAN CORPUSCULAR HEMOGLOBIN 27.3 pg (27.0-31.0); MEAN CORPUSCULAR HGB CONC 32.9 g/dL (32.0-36.0); MEAN CORPUSCULAR VOLUME 83.1 fL (81.0-99.0); MEAN PLATELET VOLUME 9.7 fL (7.9-10.8); MONOCYTES # (AUTO) 0.5 10^3/uL (0.0-1.0); MONOCYTES % (AUTO) 6.2 %; NEUTROPHILS # (AUTO) 5.7 10^3/uL (1.5-6.6); NEUTROPHILS % (AUTO) 78.7 %; PLT - PLATELET COUNT 160 10^3/uL (130-450); RED BLOOD COUNT 3.73 10^6/uL (4.20-5.40); RED CELL DISTRIBUTION WIDTH 13.5 % (12.0-15.0); WHITE BLOOD COUNT 7.3 x10^3/uL (4.8-10.8)
[2020-07-08 04:55] LABS: CALCIUM 8.5 mg/dL (8.5-10.3); CREATININE 0.7 mg/dL (0.4-1.0); MAGNESIUM 1.9 mg/dL (1.7-2.8)
[2020-07-08] MEDS ORDERED: POTASSIUM CHLORIDE 20 MEQ TABLET PO ONE ×2 (07:26→14:00)
[2020-07-08] MEDS: INSULIN ASPART 300 UNIT/3 ML PEN SUBQ SCH ×4 (07:57→21:00)
[2020-07-08] MEDS: PHENAZOPYRIDINE 100 MG TABLET PO SCH ×3 (07:58→17:06)
[2020-07-08] MEDS: busPIRone 5 MG TABLET PO SCH (09:24)
[2020-07-08] MEDS: DULoxetine 30 MG CAPSULE PO SCH (09:24)
[2020-07-08] MEDS: PRAVASTATIN 40 MG TABLET PO SCH (09:27)
[2020-07-08] MEDS: CIPROFLOXACIN 250 MG TABLET PO SCH ×2 (09:27→20:59)
[2020-07-08] MEDS: ENOXAPARIN 40 MG/0.4 ML SYRINGE SUBQ SCH (09:31)
[2020-07-08] MEDS: polyethylene glycoL 3350 17 GM PACKET PO SCH (09:40)
--- NOTE | 2020-07-08 17:39 | PROVIDER PROGRESS NOTE ---
Subjective - Prog Note Date Prog Note Date: 07/08/20 Prog Note Time: 17:40 - Subjective Pt reports feeling: Improved Objective - Vital Signs/Intake & Output Reviewed Vital Signs: Yes Vital Signs: Vital Signs x48h Temp Pulse Resp BP Pulse Ox 07/08/20 16:29 36.8 C 86 18 120/65 97 07/08/20 13:00 36.7 C 82 20 118/58 L 97 Intake & Output: Intake & Output 07/05/20 07/06/20 07/07/20 07/08/20 23:59 23:59 23:59 23:59 Intake Total 1100 4791.667 2861.25 Balance 1100 4791.667 2861.25 - Objective General Appearance: positive: No acute distress, Alert Eyes Bilateral: positive: Normal inspection, PERRL ENT: positive: No signs of dehydration Neck: positive: No JVD. negative: Stiff neck Respiratory: positive: No respiratory distress. negative: Wheezes, Rales, Rhon chi Cardiovascular: positive: Regular rate & rhythm. negative: Gallop/S4, Friction rub Abdomen: positive: Non-tender, No organomegaly, Nml bowel sounds, No distention Extremities: positive: Full ROM, No pedal edema Neurologic/Psychiatric: positive: Oriented x3, CN's nml (2-12), Motor nml - Lab Results Fish Bones: 07/08/20 04:37 07/08/20 04:37 Other Labs: Lab Results x24hrs 07/08/20 07/08/20 07/08/20 Range/Units 16:37 12:00 07:55 WBC (4.8-10.8) x10^3/uL RBC (4.20-5.40) 10^6/uL Hgb (12.0-16.0) g/dL Hct (37.0-47.0) % MCV (81.0-99.0) fL MCH (27.0-31.0) pg MCHC (32.0-36.0) g/dL RDW (12.0-15.0) % Plt Count (130-450) 10^3/uL MPV (7.9-10.8) fL Neut # (Auto) (1.5-6.6) 10^3/uL Lymph # (Auto) (1.5-3.5) 10^3/uL [place] # (Auto) (0.0-1.0) 10^3/uL Eos # (Auto) (0.0-0.7) 10^3/uL Baso # (Auto) (0.0-0.1) 10^3/uL Absolute Nucleated RBC x10^3/uL Nucleated RBC % /100WBC Sodium (135-145) mmol/L Potassium (3.5-5.0) mmol/L Chloride (101-111) mmol/L Carbon Dioxide (21-32) mmol/L Anion Gap (6-13) BUN (6-20) mg/dL Creatinine (0.4-1.0) mg/dL Estimated GFR (MDRD) (>89) Glucose (70-100) mg/dL POC Whole Bld Glucose 175 H 191 H 176 H (70 - 100) mg/dL Calcium (8.5-10.3) mg/dL Magnesium (1.7-2.8) mg/dL 07/08/20 07/08/20 07/07/20 Range/Units 04:37 04:37 20:29 WBC 7.3 (4.8-10.8) x10^3/uL RBC 3.73 L (4.20-5.40) 10^6/uL Hgb 10.2 L (12.0-16.0) g/dL Hct 31.0 L (37.0-47.0) % MCV 83.1 (81.0-99.0) fL MCH 27.3 (27.0-31.0) pg MCHC 32.9 (32.0-36.0) g/dL RDW 13.5 (12.0-15.0) % Plt Count 160 (130-450) 10^3/uL MPV 9.7 (7.9-10.8) fL Neut # (Auto) 5.7 (1.5-6.6) 10^3/uL Lymph # (Auto) 1.0 L (1.5-3.5) 10^3/uL [place] # (Auto) 0.5 (0.0-1.0) 10^3/uL Eos # (Auto) 0.0 (0.0-0.7) 10^3/uL Baso # (Auto) 0.0 (0.0-0.1) 10^3/uL Absolute Nucleated RBC 0.00 x10^3/uL Nucleated RBC % 0.0 /100WBC Sodium 132 L (135-145) mmol/L Potassium 3.2 L (3.5-5.0) mmol/L Chloride 97 L (101-111) mmol/L Carbon Dioxide 23 (21-32) mmol/L Anion Gap 12.0 (6-13) BUN 8 (6-20) mg/dL Creatinine 0.7 (0.4-1.0) mg/dL Estimated GFR (MDRD) 85 L (>89) Glucose 209 H (70-100) mg/dL POC Whole Bld Glucose 270 H (70 - 100) mg/dL Calcium 8.5 (8.5-10.3) mg/dL Magnesium 1.9 (1.7-2.8) mg/dL ABX Reporting Has patient been on IV antibiotics over the past 48 hours?: Yes Sepsis Event Note (H) - Evaluation Current Stage of Sepsis: Resolved Possible source of Sepsis: positive: Genitourinary - Sepsis Criteria Sepsis Criteria: Recorded Temperature greater than 38.3C or Less than 36C, Recorded Heart Rate greater than 90 bpm, WBC count greater than 12,000 or less than 4000, Metabolic: lactate > 2 mmol/L Assessment/Plan - Problem List (2) Urinary tract infection Impression: She presents with fever, leukocytosis, tachycardia. She met sepsis criteria. Her urinalysis did reveal pyuria and leukocyte esterase. She also had symptoms consistent with a urinary tract infection. CT of the abdomen and pelvis did not reveal any obstruction. White cell count started at 13.1>>14.4 today>>7.3 today. Blood and urine cultures are growing out E. coli. Her last tachycardia was at midnight 07/07 at 107. Since then she has been at 86 heart rate. T-max was in the emergency room at 39.2 on admission. Since then she has dropped her temperature and has remained afebrile. She was hypertensive on admission at 174/82. Since then improved BP. Overall she feels much better except for the nausea. I started her on oral antibiotics this morning and she is doing well. She received 2 doses of Rocephin IV. And this morning she was started on Cipro p.o. If she remains afebrile today, she can go home tomorrow morning.Sensitivities on the E. coli are still pending. I hope to receive those before discharge so that I can make sure she is on the right antibiotics. Qualifiers: Urinary tract infection type: acute cystitis Hematuria presence: without hematuria Qualified Code(s): N30.00 - Acute cystitis without hematuria (2) Hyponatremia Conclusion/Plan: This is likely hypovolemic hyponatremia. Her sodium was 127 on admit>> 127>>132 this morning. Recheck BMP daily (3) Hypokalemia continues Conclusion/Plan: I continue to replace this orally as well as IV. We will recheck in the morning. (4) Type 2 diabetes mellitus Conclusion/Plan: On admission she was hyperglycemic with a blood glucose of 268. We placed her on a carb controlled diet. Placed her on Lantus 5 units in the evening and sliding scale. A1c drawn and pending. Metformin being held. July 07 192, 216, 189, 270 July 08 176, 191, 175 At discharge, I will send her home on Metformin but also add a sulfonylurea, low-dose. Have her follow-up with her PCP. She does not live here. She will do a telemedicine visit with her PCP next week. I think it would be problematic to try and get her to do diabetic education classes here and coordinate with her primary care provider in [place] to follow-up her Lantus. (5) Hypertension Conclusion/Plan: we continue to hold her home antihypertensive for the time being given she is normotensive . We will resume when appropriate. (6) Anxiety Conclusion/Plan: We will continue her home medications.
[2020-07-08] MEDS: INSULIN GLARGINE 300 UNIT/3 ML PEN SUBQ SCH (21:01)
[2020-07-09] MEDS: SODIUM CHLORIDE FLUSH 0.9% 10 ML SYRINGE IVP SCH (00:39)
[2020-07-09] MEDS: SODIUM CHLORIDE 0.9% 1,000 ML IV SCH (00:59)
[2020-07-09 05:05] LABS: BASOPHILS % (AUTO) 0.6 %; EOSINOPHILS % (AUTO) 0.2 %; HGB - HEMOGLOBIN 10.6 g/dL (12.0-16.0); LYMPHOCYTES # (AUTO) 1.5 10^3/uL (1.5-3.5); LYMPHOCYTES % (AUTO) 29.5 %; MEAN CORPUSCULAR HEMOGLOBIN 27.6 pg (27.0-31.0); MEAN CORPUSCULAR HGB CONC 33.9 g/dL (32.0-36.0); MEAN CORPUSCULAR VOLUME 81.5 fL (81.0-99.0); MEAN PLATELET VOLUME 9.5 fL (7.9-10.8); MONOCYTES # (AUTO) 0.4 10^3/uL (0.0-1.0); MONOCYTES % (AUTO) 8.8 %; NEUTROPHILS % (AUTO) 60.7 %; PLT - PLATELET COUNT 163 10^3/uL (130-450); RED BLOOD COUNT 3.84 10^6/uL (4.20-5.40); RED CELL DISTRIBUTION WIDTH 13.3 % (12.0-15.0)
[2020-07-09 05:14] LABS: CALCIUM 8.8 mg/dL (8.5-10.3); CREATININE 0.6 mg/dL (0.4-1.0)
[2020-07-09] MEDS ORDERED: POTASSIUM CHLORIDE 20 MEQ TABLET PO ONE (07:00)
[2020-07-09 07:28] VITALS: BP 143/72
[2020-07-09] MEDS: INSULIN ASPART 300 UNIT/3 ML PEN SUBQ SCH (07:52)
[2020-07-09] MEDS: PHENAZOPYRIDINE 100 MG TABLET PO SCH (08:11)
[2020-07-09] MEDS: CIPROFLOXACIN 250 MG TABLET PO SCH (08:11)
[2020-07-09] MEDS: DULoxetine 30 MG CAPSULE PO SCH (08:11)
[2020-07-09] MEDS: polyethylene glycoL 3350 17 GM PACKET PO SCH (08:12)
[2020-07-09] MEDS: busPIRone 5 MG TABLET PO SCH (08:12)
[2020-07-09] MEDS: PRAVASTATIN 40 MG TABLET PO SCH (08:12)
--- NOTE | 2020-07-09 08:19 | Discharge Plan ---
Discharge Plan Problem Reviewed?: Yes Disposition: Home, Self Care Condition: Good Prescriptions: Ciprofloxacin [Cipro] 500 mg PO BID #16 tab glyBURIDE [Glyburide] 1.25 mg PO DAILY #30 tab Diet: Diabetic Activity Restrictions: Activity as Tolerated Shower Restrictions: No Driving Restrictions: No Instruction Topics: Diabetes Type 2 Coping, Urinary Tract Infecs Women Health Concerns: Llegaste a la te de emergencia por dolor al orinar, fiebre, y ganas constantes de ir al pramod. Descubrimos que tiene blayne infeccin grave con blayne infeccin del tracto urinario. [place] diabetes tampoco no est freddy controlada. Plan of Treatment: 1. Termine con los antibiticos para la infeccin. 2 tabletas dos veces al da hasta que se terminen. 2. le hemos comenzado a christ blayne nueva pastilla para la diabetes y la tomamos con [place] metformina. asegrese de controlar [place] glucosa diariamente. Si [place] glucosa est por debajo de 90 por la maana, no tome la nueva pldora solo para jcarlos da. 3. Consulte a [place] mdico habitual por telemedicina en la visita programada para esta semana e infrmele sobre la infeccin y la nueva pldora. Tienes blayne video sylwia con elVickie MD 07/16/2020. Care Goals: Her goal is to control her diabetes and to remain without infection Assessment: She understands these goals and promises to follow through No Smoking: If you smoke, Please STOP! Call for help.
--- NOTE | 2020-07-09 13:04 | DISCHARGE SUMMARY ---
"Discharge Summary Admit Date: 07/06/20 Discharge Date: 07/09/20 Discharging Provider: Marguerite Daniels MD Primary Care Provider: Vickie Betts MD ([place], [place]) Code Status: Do Not Attempt Resuscitation Condition at Discharge: Good Discharge Disposition: 01 Home, Self Care - DIAGNOSES Discharge Diagnoses with Status of Each Condition: 1. Sepsis with criteria being temperature greater than 38.3, heart rate greater than 90, white cell count greater than 12,000, lactic acid greater than 2.0. 2. Urinary tract infection with 2 types of E. coli 3. Hyponatremia 4. Hypokalemia 5. Type 2 diabetes mellitus, uncontrolled, without complications, not on long- term insulin. Patient is started on glyburide 1.25 mg a day in addition to her metformin and Trulicity 6. Hypertension 7. Anxiety 8. Hypokalemia 9. Chronic anemia present on admission - HPI History of Present Illness: This is a 60-year-old Turkmen-speaking female with a past medical history significant for type 2 diabetes mellitus, hypertension, anxiety, hyperlipidemia who presents today as she was concerned she had a urinary tract infection. She states her symptoms began about 1 week ago when she developed dysuria, urgency, and urgency. She also developed right flank pain. She came to the emergency department today at the request of her daughter given she started to develop chills, nausea, vomiting. There was also concern for a fever although her temperature was not measured as they do not have a thermometer at home. The patient does complain of nasal congestion as well but states this is chronic for the past 3 months and he attributes it to allergies. She reports no chest pain, dyspnea, cough. Denies any abdominal pain, diarrhea, constipation. She feels fatigued and very cold. She reports a prior history of urinary tract infections with the last one being about 3 years ago. She has never been hospitalized before for urinary tract infection. She previously saw a urologist in [place] but is no longer following up with one. She is currently visiting her daughter here in [facility] from [place], [place]. She has been here now for a few weeks and is planning on staying for most of the year. She will be flying back to [place] here and there for follow-up visits with her providers. In the emergency department, she is found to be febrile with temperature of 39.2 C. She is tachycardic with a heart rate in the 90s. Blood pressure was in the 130s systolics. She was not tachypneic and saturating well on room air. Labs were significant for a white count of 13,000 and a sodium of 127. Her potassium was also 3.2. Lactic acid was 2.1. Her urinalysis revealed pyuria and leukocyte esterase. She was given ceftriaxone and a liter of saline in the emergency department. She underwent a CT of the abdomen pelvis with contrast which did not reveal any nephrolithiasis or obstruction. Given the above findings, medicine was consulted for admission. I did discuss goals of care with the patient and she would like to be a DNR. - CONSULTS | PROCEDURES Procedures: 1. Abdomen pelvis CT with normal solid organs. Bowel loops normal. Diverticulosis without diverticulitis. Mild bladder wall thickening, left perinephric stranding with mild urothelial thickening suggestive of UTI infection and possible early Oral. No perinephric fluid collections or h ydronephrosis. 2. Chest x-ray with no acute disease. 3. Blood cultures July 06 growing E. coli, 2 subspecies. 4. Urine culture July 06 growing E. coli, 2 subspecies. - HOSPITAL COURSE Hospital Course: Within 24 hours she defervesced and white cell count started coming down. Repeat lactic acid after fluid resuscitation and antibiotics was normal. White cell count started at 13.1 and was 5.0 by the time of discharge. Glycosylated hemoglobin was noted to be 7.4. Glucose throughout her stay remained in the 170s to 190s. Because she is E. coli, gram-negative rods, it is felt that she could be safely discharged with oral antibiotics and does not need to complete 7 to 10 days of IV antibiotics for gram-negative bacteremia. Sensitivities were reviewed of the blood cultures and the urine cultures and the E. coli is sensitive to the ciprofloxacin. By discharge she was walking the hallways with her IV pole enthusiastically. She was eating 100% of her meals. She had mild hypokalemia that needed to be supplemented. Temperature was 36.9, pulse 90, blood pressure 143/72, respirations 18 and 97% on room air. She is 5 feet 6 inches tall and was 81.64 kg. Pleasant female who prefers to speak Turkmen. Neck is supple. Lungs are clear to auscultation and percussion. No increased respiratory effort with ambulation. Abdomen is soft, normal bowel sounds, nontender, no organomegaly. Legs without edema. Lucid. Speech pattern is normal. I have explained to her that her glucose is mildly uncontrolled. I have added glyburide 1.25 mg daily in addition to her metformin and Trulicity. She has a telemedicine appointment with her primary care provider, Vickie Betts MD from [place], [place] on 07/16/2020 via telemedicine. His number is [phone] and his fax [phone]. She needs to finish her antibiotic therapy with 500 mg Cipro twice daily for total of 10 days overall therapy combining IV and oral. She is also noted to have a normocytic anemia. Dr. Betts might want to do an outpatient work-up for that. - ALLERGIES Allergies/Adverse Reactions: Allergies Allergy/AdvReac Type Severity Reaction Status Date / Time No Known Drug Allergies Allergy Verified 07/06/20 20:32 - MEDICATIONS Home Medications: Ambulatory Orders Medication Instructions Recorded Confirmed Amlodipine Besylate [Norvasc] 10 mg PO DAILY 07/06/20 07/06/20 Duloxetine HCl [Cymbalta] 60 mg PO DAILY 07/06/20 07/06/20 Losartan Potassium [Cozaar] 100 mg PO DAILY 07/06/20 07/06/20 Metformin HCl [Glucophage] 1,000 mg PO BID 07/06/20 07/06/20 Pravastatin Sodium [Pravachol] 80 mg PO DAILY 07/06/20 07/06/20 busPIRone [Buspar] 5 mg PO DAILY 07/06/20 07/06/20 Ciprofloxacin [Cipro] 500 mg PO BID #16 tab 07/09/20 glyBURIDE [Glyburide] 1.25 mg PO DAILY #30 tab 07/09/20 - LABS Result Diagrams: 07/09/20 04:58 07/09/20 04:58 - SEPSIS Current Stage of Sepsis: Resolved Possible source of Sepsis: Genitourinary Sepsis Criteria: Recorded Temperature greater than 38.3C or Less than 36C, Recorded Heart Rate greater than 90 bpm, WBC count greater than 12,000 or less than 4000, Metabolic: lactate > 2 mmol/L"
== END 2020-07-09 10:00 | disposition home or self-care (01) | DRG 872 ==
LOC: ED 20:23 → MS3 23:18
PROVIDERS: ADMIT Internal Medicine; ATTEND Specialist
DX: A41.51 Sepsis due to Escherichia coli [E. coli] (principal); N30.00 Acute cystitis without hematuria; E87.1 Hypo-osmolality and hyponatremia; E87.6 Hypokalemia; I10 Essential (primary) hypertension; E11.65 Type 2 diabetes mellitus with hyperglycemia; F41.9 Anxiety disorder, unspecified; D64.9 Anemia, unspecified; E78.5 Hyperlipidemia, unspecified; Z20.822 Contact with and (suspected) exposure to COVID-19; Z87.440 Personal history of urinary (tract) infections; J45.909 Unspecified asthma, uncomplicated; E86.1 Hypovolemia; Z79.84 Long term (current) use of oral hypoglycemic drugs; Z79.899 Other long term (current) drug therapy
CPT/HCPCS: 0202U; 36415; 71045; 74177; 80048; 80053; 81001; 83036; 83605; 83735; 85025; 87040; 87077; 87086; 87150; 87181; 96361; 96365; 96375; 99283; 99285; A9270; J1650; J1815; Q9967